=== PATIENT | female | born 1940 | race American Indian/Alaskan Native ===

== ENCOUNTER 2021-05-28 08:00 | Outpatient (CLI) | payer OTHER | END 2021-05-28 08:30 | disposition home or self-care (01) | LOC: PPH VACUNA 08:00 | PROVIDERS: ATTEND Emergency Medicine Pediatric Emergency Medicine | DX: Z23 Encounter for immunization (principal) ==

== ENCOUNTER 2024-11-03 10:14 | Emergency (ER) | payer OTHER ==
[~2024-11-03] VITALS: Ht 162.6 cm; Wt 59.0 kg
[2024-11-03] MEDS ORDERED: RAYOS5 MG PO (11:28)
[2024-11-03] MEDS ORDERED: TRAMADOL HCL 50 MG TABLET PO ONE (11:45)
[2024-11-03] MEDS ORDERED: NORFLEX100MG PO (11:59)
== END 2024-11-03 12:10 | disposition home or self-care (01) ==
LOC: ER 10:17
DX: S69.81XA Other specified injuries of right wrist, hand and finger(s), initial encounter (principal); W19.XXXA Unspecified fall, initial encounter; Y93.89 Activity, other specified; Y92.89 Other specified places as the place of occurrence of the external cause; Y99.8 Other external cause status; M25.531 Pain in right wrist; Z88.5 Allergy status to narcotic agent

== ENCOUNTER 2025-03-02 13:14 | Outpatient (CLI) | payer OTHER ==
[~2025-03-02 13:14] MED LIST: NORFLEX100MG PO; RAYOS5 MG PO
== END 2025-03-02 13:19 | disposition home or self-care (01) ==
LOC: RAD 13:14
PROVIDERS: ATTEND Family Medicine
DX: M54.51 Vertebrogenic low back pain (principal); M54.16 Radiculopathy, lumbar region

== ENCOUNTER 2025-04-03 09:44 | Outpatient (CLI) | payer OTHER | END 2025-04-03 09:47 | disposition home or self-care (01) | LOC: NUCLEAR 09:44 | PROVIDERS: ATTEND Family Medicine | DX: M85.80 Other specified disorders of bone density and structure, unspecified site (principal); M81.0 Age-related osteoporosis without current pathological fracture ==

== ENCOUNTER 2025-07-05 10:22 | Outpatient (CLI) | payer OTHER | END 2025-07-05 10:26 | disposition home or self-care (01) | LOC: RAD 10:22 | PROVIDERS: ATTEND Neurological Surgery | DX: M54.10 Radiculopathy, site unspecified (principal); M16.0 Bilateral primary osteoarthritis of hip ==